=== PATIENT | male | born 1990 | race Caucasian/White ===

== ENCOUNTER 2021-02-10 15:56 | Emergency (ER) | payer OTHER ==
[~2021-02-10] VITALS: Ht 175.3 cm; Wt 121.0 kg
[2021-02-10 16:09] VITALS: BP 145/72
--- NOTE | 2021-02-10 16:30 | RAD ---
Right ankle 3 views. HISTORY: Fall, ankle pain 3 views were taken of the right ankle. There is not evidence of an acute fracture. There is soft tiss ue swelling laterally. There is no acute osseous abnormality. IMPRESSION: 1. No acute fracture noted in the right ankle. Electronically signed by: Delmar Link MD (02/10/2021 4:27 PM) [facility]
--- NOTE | 2021-02-10 16:34 | PHYS DOC ---
Past History Past Medical History: No Pertinent History Past Surgical History: Other Additional Past Surgical Histo: SPINAL SURGERIES, Alcohol Use: Occasionally General Adult EDM: Chief Complaint: ANKLE PROBLEM HPI: HPI: Patient is a 30-year-old male who presents with right ankle pain after tripping over a toy this morning. Patient reports taking two, 10 mg, oxy, prior to arrival. Patient states that helped with the pain. Able to ambulate and ROM intact. Patient has a history of back pain. Review of Systems: Review of Systems: Constitutional: Denies fever or chills Eyes: Denies change in visual acuity HENT: Denies nasal congestion or sore throat Respiratory: Denies cough or shortness of breath Cardiovascular: Denies chest pain or edema GI: Denies abdominal pain, nausea, vomiting, bloody stools or diarrhea : Denies dysuria Musculoskeletal: Right ankle pain, denies joint pain Integument: Denies rash Neurologic: Denies headache, focal weakness or sensory changes Endocrine: Denies polyuria or polydipsia Lymphatic: Denies swollen glands Psychiatric: Denies depression or anxiety Allergies: Allergies: Allergies Coded Allergies Type Severity Reaction Last Updated Verified No Known Drug Allergies 02/10/21 No Physical Exam: PE: Constitutional: Well developed, well nourished, no acute distress, non-toxic appearance. [] HENT: Normocephalic, atraumatic, bilateral external ears normal, oropharynx mo ist, no oral exudates, nose normal. [] Eyes: PERRLA, EOMI, conjunctiva normal, no discharge. [] Neck: Normal range of motion, no tenderness, supple, no stridor. [] Cardiovascular:Heart rate regular rhythm, no murmur [] Lungs & Thorax: Bilateral breath sounds clear to auscultation [] Abdomen: Bowel sounds normal, soft, no tenderness, no masses, no pulsatile masses. [] Skin: Warm, dry, no erythema, no rash. [] Back: No tenderness, no CVA tenderness. [] Extremities: Right ankle tenderness, ROM intact, swelling, pedal pulses intact Neurologic: Alert and oriented X 3, normal motor function, normal sensory function, no focal deficits noted. [] Psychologic: Affect normal, judgement normal, mood normal. [] Current Patient Data: Vital Signs: Vital Signs Date Time Temp Pulse Resp B/P (MAP) Pulse Ox O2 Delivery O2 Flow Rate FiO2 02/10/21 16:09 96.7 80 18 145/72 (96) 99 Room Air EKG: EKG: [] Radiology/Procedures: Radiology/Procedures: []Right ankle 3 views. HISTORY: Fall, ankle pain 3 views were taken of the right ankle. There is not evidence of an acute fracture. There is soft tissue swelling laterally. There is no acute osseous abnormality. IMPRESSION: 1. No acute fracture noted in the right ankle. Electronically signed by: Delmar Link MD (02/10/2021 4:27 PM) [facility] Heart Score: C/O Chest Pain: No Risk Factors: Risk Factors: DM, Current or recent (<one month) smoker, HTN, HLP, family hi story of CAD, obesity. Risk Scores: Score 0 - 3: 2.5% MACE over next 6 weeks - Discharge Home Score 4 - 6: 20.3% MACE over next 6 weeks - Admit for Clinical Observation Score 7 - 10: 72.7% MACE over next 6 weeks - Early Invasive Strategies Course & Med Decision Making: Course & Med Decision Making Pertinent Labs and Imaging studies reviewed. (See chart for details) [] Pedal pulses and range of motion intact. X-ray ordered of right ankle to rule out fracture. Ice applied to ankle. X-ray negative for fracture. Rice instructions given. Patient to take ibuprofen at home for discomfort. Dragon Disclaimer: Dragon Disclaimer: This electronic medical record was generated, in whole or in part, using a voice recognition dictation system. Departure Departure: Impression: Primary Impression: Ankle sprain Qualified Codes: S93.401A - Sprain of unspecified ligament of right ankle, initial encounter Disposition: 01 DC HOME SELF CARE/HOMELESS Condition: STABLE Referrals: SINDHU ERAZO (PCP) Patient Instructions: Ankle Sprain, [id number], RICE - Routine Care for Injuries, [id number] Additional Instructions: EMERGENCY DEPARTMENT GENERAL DISCHARGE INSTRUCTIONS Thank you for coming to [facility] (ED) today and trusting us with you care. We trust that you had a positivie experience in our Emergency Department. If you wish to speak to the department management, you may call the director at [phone]. YOUR FOLLOW UP INSTRUCTIONS ARE FOLLOWS: 1. Do you have a private Doctor? If you do not have a private doctor, please ask for a resource list of physicians or clinics that may be able to assist you with follow up care. 2. The Emergency Physician has interpreted your x-rays. The X-Ray specialist will also review them. If there is a change in the findings, you will be notified in 48 hours when at all possible. 3. A lab test or culture has been done, your results will be reviewed and you will be notified if you need a change in treatment. ADDITIONAL INSTRUCTIONS AND INFORMATION: 1. Your care today has been supervised by a physician who is specially trained in emergency care. Many problems require more than one evaluation for a complete diagnosis and treatment. We recommend that you schedule your follow up appointment as recommended to ensure complete treatment of you illness or injury. If you are unable to obtain follow up care and continue to have a problem, or if your condition worsens, we recommend that you return to the ED. 2. We are not able to safely determine your condition over the phone nor are we able to give sound medical advice over the phone. For these safety reasons, if you call for medical advice we will ask you to come to the ED for further evaluation. 3. If you have any questions regarding these discharge instructions please call the ED at [phone]. SAFETY INFORMATION: In the interest of safety, wellness, and injury prevention; we encourage you to wear your sealbelt, if you smoke; quite smoking, and we encourage family to use a protective helmet for bicycling and other sporting events that present an increased risk for head injury. IF YOUR SYMPTOMS WORSEN OR NEW SYMPTOMS DEVELOP, OR YOU HAVE CONCERNS ABOUT YOUR CONDITION; OR IF YOUR CONDITION WORSENS WHILE YOU ARE WAITING FOR YOUR FOLLOW UP APPOINTMENT; EITHER CONTACT YOUR PRIMARY CARE DOCTOR, THE PHYSICIAN WHOSE NAME AND NUMBER YOU WERE GIVEN, OR RETURN TO THE ED IMMEDIATELY. TRIXIE ENCARNACION APRN Feb 10, 2021 16:34
== END 2021-02-10 16:45 | disposition home or self-care (01) ==
LOC: ER 15:56
DX: S93.401A Sprain of unspecified ligament of right ankle, initial encounter (principal); W18.09XA Striking against other object with subsequent fall, initial encounter; Y93.89 Activity, other specified; Y92.89 Other specified places as the place of occurrence of the external cause; Y99.8 Other external cause status
CPT/HCPCS: 73610; 99283

== ENCOUNTER → 2021-08-11 | Outpatient (CLI) | payer OTHER ==
[~2021-08-11] MED LIST: CHOL400T36 PO; METH100V IJ; OMEG1CAP50 PO; OXYC1TAB19 PO; OXYC30TA3 PO; TRAZ-120 PO
== END ==
LOC: LAB 08-08 07:32
PROVIDERS: ATTEND Surgery
DX: Z01.812 Encounter for preprocedural laboratory examination (principal); K64.9 Unspecified hemorrhoids; Z20.822 Contact with and (suspected) exposure to COVID-19
CPT/HCPCS: U0003

== ENCOUNTER → 2021-08-13 | Day surgery (SDC) | payer OTHER ==
[~2021-08-13] MED LIST changes: +ACETAMINOPHEN 500 MG TABLET PO ONE; +BUPIVACAINE-EPI 0.25%-1:200000 MPF 30 ML VIAL. ONE; +DEXAMETHASONE SOD PHOS 4 MG/ML VIAL. ONE; +IPRATRPIUM/ALBUTEROL 0.5/2.5MG 3 ML NEBU. NEB PRN; +IV RINGERS SOLUTION,LACTATED 1,000 ML IV SCH; +KETAMINE HCL IN NACL, ISO-OSM 50 MG/5 ML SYRINGE ONE; +KETOROLAC 30 MG/ML VIAL. ONE; +LIDOCAINE 2% PF 5 ML VIAL. ONE; +MIDAZOLAM HCL PF 2 MG/2 ML VIAL. IV ONE; +MIDAZOLAM HCL PF 2 MG/2 ML VIAL. ONE; +NEOMY/BACITR/POLYMYXIN OINT PACKET. TP ONE; +ONDANSETRON PF 4 MG/2 ML VIAL. IV PRN; +ONDANSETRON PF 4 MG/2 ML VIAL. ONE; +PROPOFOL 10,000 MCG/ML (20ML) VIAL IV ONE; +SEVOFLURANE 31 TO 60 MINUTES. IH ONE; +ceFAZolin SODIUM 2 GM in IV DEXTROSE 5% 50 ML IV ONE
--- NOTE | 2021-08-13 07:44 | PDOC1 ---
History of Present Illness Reason for Visit: Hemorrhoidectomy History of Present Illness 30-year-old male with complaints of hemorrhoids has had for several years feels like a getting worse with more pain occasional bleeding he has tried [id number] hemorrhoidal creams without much success Chief Complaint: Hemorrhoidal pain Allergies: Coded Allergies: No Known Drug Allergies (Unverified , 08/13/21) Past Medical History Cardiac: No pertinent hx Pulmonary: No pertinent hx GI: No pertinent hx Heme/Onc: No pertinent hx Hepatobiliary: No pertinent hx Psych: Anxiety Musculoskeletal: No pertinent hx Rheumatologic: No pertinent hx Infectious disease: No pertinent hx ENT: No pertinent hx Renal/: No pertinent hx Endocrine: No pertinent hx Dermatology: No pertinent hx Past Surgical History: Other (Vasectomy and lumbar discectomy) Family History: No pertinent hx Past Social History Smoke: No Alcohol: none Drugs: None Lives: with Family Review of Systems Review Of Systems Fourteen system , review of systems has been reviewed. See HPI for pertinent positives and negative responses, other clay all other systems are negative, non pertinent or non contributory Medications Current Medications Cefazolin Sodium 2 gm/Dextrose 50 ml @ 100 mls/hr 1X ONCE IV ; Start 08/13/21 at 07:00; Stop 08/13/21 at 07:29; Status DC Acetaminophen (Tylenol) 1,000 mg 1X ONCE PO Last administered on 08/13/21at 07:34; Start 08/13/21 at 07:00; Stop 08/13/21 at 07:01; Status DC Ondansetron HCl (Zofran) 4 mg PRN Q6HRS PRN IV Nausea, 1st Choice; Start 08/13/21 at 07:00; Stop 08/14/21 at 06:59 Albuterol/ Ipratropium (Duoneb) 3 ml 1X PRN PRN NEB Shortness of Breath; Start 08/13/21 at 07:00; Stop 08/14/21 at 06:59 Midazolam HCl (Versed) 2 mg 1X ONCE IV ; Start 08/13/21 at 07:00; Stop 08/13/21 at 07:01; Status DC Lactated Ringer's 1,000 ml @ 125 mls/hr Q8H IV ; Start 08/13/21 at 07:00; Stop 08/13/21 at 18:59 Midazolam HCl (Versed) 2 mg STK-MED ONCE .ROUTE ; Start 08/13/21 at 07:07; Stop 08/13/21 at 07:08; Status DC Fentanyl Citrate (Fentanyl 2ml Vial) 100 mcg STK-MED ONCE .ROUTE ; Start 08/13/21 at 07:07; Stop 08/13/21 at 07:08; Status DC Cefazolin Sodium/ Dextrose 50 ml @ As Directed STK-MED ONCE IV ; Start 08/13/21 at 07:32; Stop 08/13/21 at 07:32; Status DC Bupivacaine HCl/ Epinephrine Bitart (Sensorcaine-Epi 0.25%-1:034854 Mpf) 30 ml STK-MED ONCE .ROUTE ; Start 08/13/21 at 07:35; Stop 08/13/21 at 07:35; Status DC Ketamine HCl (Ketamine) 50 mg STK-MED ONCE .ROUTE ; Start 08/13/21 at 07:39; Stop 08/13/21 at 07:39; Status DC Active Scripts Active Reported Fish Oil 1,000 Mg Softgel ([place]-3 Fatty Acids/Fish Oil) 1 Each Capsule 1 Cap PO DAILY 30 Days Vitamin D (Cholecalciferol (Vitamin D3)) 400 Unit Tablet 400 Unit PO DAILY Trazodone Hcl 50 Mg Tablet 50 Mg PO QHS Robaxin (Methocarbamol) 100 Mg/1 Ml Vial 100 Mg IJ DAILY Oxycodone Hcl Extend.release (Oxycodone Hcl) 30 Mg Tablet 30 Mg PO BID Exam Vital Signs Vital Signs Date Time Temp Pulse Resp B/P (MAP) Pulse Ox O2 Delivery O2 Flow Rate FiO2 08/13/21 07:13 97.0 75 23 120/96 (104) 100 Room Air General Appearance: Alert, Oriented X3, Cooperative, No acute distress HEENT: Atraumatic, EOMI Respiratory: Clear to auscultation, Normal air movement Heart: Regular rate, No murmurs Abdominal: Normal bowel sounds, Soft, No tenderness Rectal Exam: Int hemorrhoids noted Skin: No significant lesion Neuro: Normal speech Psych/Mental Status: Mental status NL Assessment/Plan Assessment/Plan Internal hemorrhoids with complications plan hemorrhoidectomy COURSE Allergies Coded Allergies Type Severity Reaction Last Updated Verified No Known Drug Allergies 08/13/21 No Current Medications Medications (Trade) Dose Ordered Sig/Dasia Route PRN Reason Start Time Stop Time Status Last Admin Dose Admin Cefazolin Sodium 2 gm/Dextrose 50 ml @ 100 mls/hr 1X ONCE IV 08/13/21 07:00 08/13/21 07:29 DC Acetaminophen (Tylenol) 1,000 mg 1X ONCE PO 08/13/21 07:00 08/13/21 07:01 DC 08/13/21 07:34 Ondansetron HCl (Zofran) 4 mg PRN Q6HRS PRN IV Nausea, 1st Choice 08/13/21 07:00 08/14/21 06:59 Albuterol/ Ipratropium (Duoneb) 3 ml 1X PRN PRN NEB Shortness of Breath 08/13/21 07:00 08/14/21 06:59 Midazolam HCl (Versed) 2 mg 1X ONCE IV 08/13/21 07:00 08/13/21 07:01 DC Lactated Ringer's 1,000 ml @ 125 mls/hr Q8H IV 08/13/21 07:00 08/13/21 18:59 Midazolam HCl (Versed) 2 mg STK-MED ONCE .ROUTE 08/13/21 07:07 08/13/21 07:08 DC Fentanyl Citrate (Fentanyl 2ml Vial) 100 mcg STK-MED ONCE .ROUTE 08/13/21 07:07 08/13/21 07:08 DC Cefazolin Sodium/ Dextrose 50 ml @ As Directed STK-MED ONCE IV 08/13/21 07:32 08/13/21 07:32 DC Bupivacaine HCl/ Epinephrine Bitart (Sensorcaine-Epi 0.25%-1:970705 Mpf) 30 ml STK-MED ONCE .ROUTE 08/13/21 07:35 08/13/21 07:35 DC Ketamine HCl (Ketamine) 50 mg STK-MED ONCE .ROUTE 08/13/21 07:39 08/13/21 07:39 DC Orders Procedure Category Date Status Time Cefazolin Sodium PHA 08/13/21 Complete (Ancef) 07:00 Acetaminophen PHA 08/13/21 Complete (Tylenol) 07:00 Vital Signs, Per [facility] 08/13/21 In Process Protocol 06:53 Pulse Oximetry: [facility] 08/13/21 In Process Standing Order 06:53 Shipfitter Apprentice [facility] 08/13/21 In Process 06:53 Elevate Head Of Bed [facility] 08/13/21 In Process 06:53 Discharge From [facility] 08/13/21 In Process Hospital 06:53 Ondansetron Pf PHA 08/13/21 In Process (Zofran) 07:00 Iv Ringers PHA 08/13/21 In Process Solution,Lactated (Iv 07:00 Ipratrpium/Albuterol [facility] 08/13/21 In Process 0.5/2.5mg (Duoneb) 07:00 Anesthesia Adult [facility] 08/13/21 In Process Pre-Op Pr 06:53 Midazolam Hcl Pf [facility] 08/13/21 Complete (Versed) 07:00 Vital Signs, Per [facility] 08/13/21 In Process Protocol 06:53 Pulse Ox - [facility] 08/13/21 In Process Intermittent 06:53 Midazolam Hcl Pf [facility] 08/13/21 Complete (Versed) 07:07 Fentanyl Pf (Fentanyl [facility] 08/13/21 Complete 2ml Vial) 07:07 Cefazolin 2gm Premix [facility] 08/13/21 Complete (Ancef 2gm Premix) 07:32 Bupivac-Epi PHA 08/13/21 Complete 0.25%-1:539769 Mpf 07:35 Ketamine Hcl In Nacl, [facility] 08/13/21 Complete Iso-Osm (Ketamine) 07:39 Vital Signs Date Time Temp Pulse Resp B/P (MAP) Pulse Ox O2 Delivery O2 Flow Rate FiO2 08/13/21 07:13 97.0 75 23 120/96 (104) 100 Room Air Justification of Admission: Justification of Admission: Justification of Admission Dx: N/A ELIAZAR FRIEDMAN MD Aug 13, 2021 07:44
--- NOTE | 2021-08-13 08:33 | PDOC4 ---
Operative Report DATE August 132020 at 831 Preop Diagnosis Internal and external hemorrhoids Post-op Diagnosis Same Operation Performed Hemorrhoidectomy Patient is a 30-year-old male with complaints of painful and bleeding hemorrhoids. The procedure of hemorrhoidectomy was explained to the patient detail risk-benefit were also discussed occluding bleeding infection alternatives to this procedure also discussed with the patient who seemed to understand and gave both verbal and written consent to have the procedure performed. Patient was taken to the operating room placed in the supine position general anesthesia was initiated once patient was sleeping intubated is placed in low lithotomy positioning and his perineum was prepped and draped usual sterile fashion using Betadine scrub and solution. An area around the hemorrhoids was injected with quarter percent Marcaine with epinephrine the hemorrhoid was grabbed with a Allis clamp, and excised with the harmonic scalpel. Hemorrhoids were sent for pathology. Wound was dressed with a ntibiotic ointment 4 x 4's and mesh underwear. Patient was placed in the supine positioning awakened and extubated in the operating room taken to recovery in stable condition all sponge instrument needle counts listed as correct estimated blood loss 10 mL. Surgeon Colby ANESTHESIA PROPOSED: GENERAL, LOCAL Blood Loss 10 mL Specimen Internal/external hemorrhoids Complications None ELIAZAR FRIEDMAN MD Aug 13, 2021 08:33
--- NOTE | 2021-08-13 08:46 | DISCH ---
DISCHARGE INSTRUCTIONS-DC Condition on Discharge Condition on Discharge: Stable Activity after Discharge Activity Instructions for Disc: Avoid exertion Diet after Discharge Diet after Discharge: Regular Contacting the DR. after DC Call your doctor for: If your condition worsens Follow-Up Follow up with: Dr. Friedman in 2 weeks ELIAZAR FRIEDMAN MD Aug 13, 2021 08:46
[2021-08-13 09:41] VITALS: BP 123/68
--- NOTE | 2021-08-14 16:24 | PATHOLOGY ---
[facility] Accession Number: [id number] . 01 Material submitted: . hemorrhoids - HEMORRHOIDS . 01 Clinical history: . HEMORRHOIDECTOMY . 02 Diagnosis: Segments of skin and anorectal mucosa and underlying fibromuscular tissue, hemorrhoidectomy: - Hemorrhoids, with focal organizing thrombosis. (JPM:diego; 08/14/2021) R 08/14/2021 1555 Local . 02 Comment: There is no evidence of malignancy. (JPM:diego; 08/14/2021) . 02 Electronically signed: . Daniel Mclain MD, Pathologist NPI- [id number] . 01 Gross description: . Fixative: Formalin Labeled: Hemorrhoids Specimen received: 2 intact hemorrhoids Dimensions: 4.5 x 3.5 x 2.1 and 6.2 x 1.5 x 1.2 cm Cut surface: Hemorrhagic with dilated vasculature Commercial Property Manager sections of both tissue segments in cassettes A1 to A2. ([facility]; 08/13/2021) [facility] 08/13/2021 1751 Local . 02 Pathologist provided ICD-10: K64.5 . 02 CPT . 168910 Specimen Comment: A courtesy copy of this report has been sent to [phone], [phone] Specimen Comment: [id number] Specimen Comment: Report sent to / DR ERAZO Specimen Comment: A duplicate report has been generated due to demographic updates. Performed at: 01 [facility] [address], [place] [id number] MD Levon Alvarado MD Phone: [phone] Performed at: 02 [facility] [address], [place] [id number] MD Daniel Mclain MD Phone: [phone]
== END | disposition home or self-care (01) ==
LOC: SURG 07:02
PROVIDERS: ATTEND Surgery
DX: K64.4 Residual hemorrhoidal skin tags (principal); F17.210 Nicotine dependence, cigarettes, uncomplicated; Z79.899 Other long term (current) drug therapy; Z98.890 Other specified postprocedural states; Z72.89 Other problems related to lifestyle
CPT/HCPCS: 46255; 88304; J0690; J1100; J1885; J2001; J2250; J2405; J2704; J3010; J3490; J7120

== ENCOUNTER 2021-12-27 02:40 | Emergency (ER) | payer OTHER ==
[~2021-12-27] VITALS: Ht 180.3 cm; Wt 121.0 kg
[~2021-12-27 02:40] MED LIST changes: -ACETAMINOPHEN 500 MG TABLET PO ONE; -BUPIVACAINE-EPI 0.25%-1:200000 MPF 30 ML VIAL. ONE; -DEXAMETHASONE SOD PHOS 4 MG/ML VIAL. ONE; -IPRATRPIUM/ALBUTEROL 0.5/2.5MG 3 ML NEBU. NEB PRN; -IV RINGERS SOLUTION,LACTATED 1,000 ML IV SCH; -KETAMINE HCL IN NACL, ISO-OSM 50 MG/5 ML SYRINGE ONE; -KETOROLAC 30 MG/ML VIAL. ONE; -LIDOCAINE 2% PF 5 ML VIAL. ONE; -MIDAZOLAM HCL PF 2 MG/2 ML VIAL. IV ONE; -MIDAZOLAM HCL PF 2 MG/2 ML VIAL. ONE; -NEOMY/BACITR/POLYMYXIN OINT PACKET. TP ONE; -ONDANSETRON PF 4 MG/2 ML VIAL. IV PRN; -ONDANSETRON PF 4 MG/2 ML VIAL. ONE; -PROPOFOL 10,000 MCG/ML (20ML) VIAL IV ONE; -SEVOFLURANE 31 TO 60 MINUTES. IH ONE; -ceFAZolin SODIUM 2 GM in IV DEXTROSE 5% 50 ML IV ONE
[2021-12-27] MEDS ORDERED: ONDANSETRON ODT 4 MG TAB.RAPDIS PO ONE (02:45)
[2021-12-27] MEDS ORDERED: MORPHINE SULFATE 10 MG/ML SYRINGE. SQ ONE (02:45)
[2021-12-27] MEDS ORDERED: ORPHENADRINE CITRATE 60 MG/2 ML VIAL. IM ONE (02:45)
[2021-12-27 02:46] VITALS: BP 137/89
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
[2021-12-27 03:37] LABS: BARBITURATES NEG (NEG); BENZODIAZEPINES NEG (NEG); CANNABINOIDS NEG (NEG); COCAINE NEG (NEG); METHADONE NEG (NEG); OPIATES NEG (NEG); PHENCYCLIDINE NEG (NEG)
[2021-12-27 03:39] LABS: AMPHETAMINE/METHAMPHETAMINE NEG (NEG)
[2021-12-27 03:41] LABS: BILIRUBIN,URINE NEG (NEG); CLARITY,URINE CLEAR; COLOR,URINE YELLOW; GLUCOSE,URINE NEG (NEG)
[2021-12-27 03:42] LABS: BACTERIA,URINE 0 /HPF (0-FEW); NITRITE,URINE NEG (NEG); RBC,URINE 0 /HPF (0-2); SQUAMOUS EPITHELIAL CELL,UR OCC /LPF; UROBILINOGEN,URINE 0.2 mg/dL (0.2 mg/dL); WBC,URINE RARE /HPF (0-4)
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
[2021-12-27] MEDS ORDERED: CYCL10TA19 PO (04:03)
== END 2021-12-27 04:08 | disposition home or self-care (01) ==
LOC: ER 02:40
DX: S13.9XXA Sprain of joints and ligaments of unspecified parts of neck, initial encounter (principal); S80.12XA Contusion of left lower leg, initial encounter; S80.11XA Contusion of right lower leg, initial encounter; M48.07 Spinal stenosis, lumbosacral region; R07.89 Other chest pain; V47.9XXA Unspecified car occupant injured in collision with fixed or stationary object in traffic accident, initial encounter; Y93.89 Activity, other specified; Y92.89 Other specified places as the place of occurrence of the external cause; Y99.8 Other external cause status
CPT/HCPCS: 36415; 70450; 71046; 72125; 72131; 80307; 81001; 96372; 99285; J2270; J2360; Q0162